=== PATIENT | male | born 1970 | race African-American/Black ===

== ENCOUNTER 2018-04-17 18:12 | Emergency (ER) | payer BC ==
[2018-04-17 18:19] VITALS: BP 139/95; PULSE 80; TEMP 98.8; BMI 37.1
[2018-04-17] MEDS ORDERED: KETOROLAC TROMETHAMINE 60 MG/2 ML VIAL IM ONE (19:18)
--- NOTE | 2018-04-17 19:18 | PDOC ---
History of Present Illness - General History Source: Patient Exam Limitations: No Limitations - History of Present Illness Initial Comments: 04/17/18 20:00 A portion of this note was documented by scribe services under my direction. I have reviewed the details of the note, within reason, and agree with the documentation. The case summary and management plan written by me. Assessment plan: This is a 47-year-old male who comes in complaining of a headache. Patient was worried because a friend of his had an aneurysm. Patient' s had hurt more at onset and has gotten progressively better with time to this point he is almost no pain at all. Patient was given some Toradol and Reglan with near resolution of his symptoms and discharged home. An <Therese Trevino I - Last Filed: 04/17/18 20:00> - History of Present Illness Initial Comments: 04/17/18 19:40 Patient is a 47 year old male with no significant past medical history who presents to the ED with complaints of left sided head pain that began x2.5 hours prior to ED arrival. Patient reports talking on the phone when he began to suddenly exprecience (excruciating) left sided head pain that he states is a sharp stabbing 9/10 pain that lasted 5 minutes, before relieving slightly to a constant 8/10 pain. He reports coming into the ED for further evaluation after becoming worried that the pain could be due to an aneurysm due to a friend being diagnosed earlier this year. Denies chest pain, Sob. Denies nausea, vomiting. Denies contact with sick individuals, out of state travelling. Denies diarrhea, constipation. Denies dysuria, hematuria. Denies any other symptoms. Allergies: None Social history: No smoking. No alcohol. No illicit drugs. Surgical history: None PMD: None Adult ROS General: No fevers or chills, no weakness, no weight loss HEENT: +Head pain No change in vision. No sore throat, No ear pain Cardiovascular: No chest pain or shortness of breath Respiratory:No cough, or wheezing. Gastrointestinal: No nausea, vomiting, diarrhea or constipation, No rectal bleeding Genitourinary: No dysuria, hematuria, or frequency Musculoskeletal: No joint or muscle pain or swelling Neurologic: No headache, vertigo, dizziness or loss of consciousness Psychiatric: No depression Skin: No rashes or easy bruising Endocrine: No increased thirst or abnormal weight change Allergic: No skin or latex allergy All other systems reviewed and normal Basic PE GENERAL: The patient is awake, alert, and fully oriented, in no acute distress. HEAD: No Tenderness on palpation of temporal artery. Normal with no signs of trauma. EYES: Pupils equal, round and reactive to light, extraocular movements intact, sclera anicteric, conjunctiva clear. EXTREMITIES: Normal range of motion, no edema. NEUROLOGICAL: Normal speech, normal gait. PSYCH: Normal mood, normal affect. SKIN: Warm, Dry, normal turgor, no rashes or lesions noted. 04/17/18 20:47 <Mal Estrella - Last Filed: 04/17/18 20:47> - General Chief Complaint: Headache Stated Complaint: HEAD PAIN Time Seen by Provider: 04/17/18 19:18 Past History - Past Medical History COPD: No - Suicide/Smoking/Psychosocial Hx Smoking History: Never smoked Have you smoked in the past 12 months: No Information on smoking cessation initiated: No Hx Alcohol Use: No Drug/Substance Use Hx: No Substance Use Type: None <Therese Trevino I - Last Filed: 04/17/18 20:00> <Mal Estrella - Last Filed: 04/17/18 20:47> - Past Medical History Allergies/Adverse Reactions: Allergies Allergy/AdvReac Type Severity Reaction Status Date / Time No Known Allergies Allergy Verified 04/17/18 18:13 Home Medications: Ambulatory Orders NK [No Known Home Medication] 04/27/15 *Physical Exam - Vital Signs Last Vital Signs Temp Pulse Resp BP Pulse Ox 98.8 F 80 20 139/95 100 04/17/18 18:12 04/17/18 18:12 04/17/18 18:12 04/17/18 18:12 04/17/18 18:12 <Therese Trevino I - Last Filed: 04/17/18 20:00> - Vital Signs Last Vital Signs Temp Pulse Resp BP Pulse Ox 98.8 F 80 20 139/95 100 04/17/18 18:12 04/17/18 18:12 04/17/18 18:12 04/17/18 18:12 04/17/18 18:12 <Mal Estrella - Last Filed: 04/17/18 20:47> *DC/Admit/Observation/Transfer <Therese Trevino I - Last Filed: 04/17/18 20:00> - Attestations Scribe Attestion: 04/17/18 19:40 Documentation prepared by Mal Estrella, acting as anesthesiology medical doctor for Therese Trevino MD. <Mal Estrella - Last Filed: 04/17/18 20:47> Diagnosis at time of Disposition: Headache Qualifiers: Headache type: unspecified Headache chronicity pattern: acute headache Intractability: not intractable Qualified Code(s): R51 - Headache - Discharge Dispostion Disposition: HOME Condition at time of disposition: Stable - Patient Instructions Additional Instructions: You can take Tylenol or Motrin as needed for pain. Return to the emergency department immediately with ANY new, persistent or worsening symptoms. Continue any medications as previously prescribed by your physician. You should follow up with your primary doctor as soon as possible regarding today's emergency department visit. . Please make sure your doctor reviews the results of your emergency evaluation. Thank you for coming to the Emergency Department today for your care. It was a pleasure to see you today. Please note that your evaluation is INCOMPLETE until you follow-up with your doctor.
[2018-04-17] MEDS ORDERED: METOCLOPRAMIDE HCL INJECTION 10 MG/2 ML VIAL IM ONE (19:19)
[2018-04-17] MEDS ORDERED: KETOROLAC TROMETHAMINE 60 MG/2 ML VIAL ONE (19:41)
== END 2018-04-17 20:12 | disposition home or self-care (01) ==
LOC: FER 18:12
PROC: 3E0333Z Introduction of Anti-inflammatory into Peripheral Vein, Percutaneous Approach (ICD-10-PCS; principal; 2018-04-17)
PROC: 3E033GC Introduction of Other Therapeutic Substance into Peripheral Vein, Percutaneous Approach (ICD-10-PCS; 2018-04-17)
DX: R51 Headache (principal)
CPT/HCPCS: 99281-25